=== PATIENT | male | born 1975 | race Caucasian/White ===

== ENCOUNTER 2017-01-09 18:39 | Emergency (ER) | payer OTHER ==
[~2017-01-09] VITALS: Ht 175.3 cm; Wt 90.7 kg
[~2017-01-09 18:39] MED LIST: AMOXICILLIN500 M3 PO; CYMBALTA30 M1 PO; PERCOCET 5-3251 EACH PO; PERIOGARD473 ML PO
[2017-01-09] MEDS ORDERED: SILVADENE20 GM TOP (19:31)
[2017-01-09] MEDS ORDERED: TRAMADOL HCL50 M1 PO (19:31)
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
[2017-01-09 19:41] VITALS: BP 148/87
== END 2017-01-09 19:42 ==
LOC: ERH 18:39
DX: T23.121A Burn of first degree of single right finger (nail) except thumb, initial encounter (principal); X19.XXXA Contact with other heat and hot substances, initial encounter